=== PATIENT | male | born 1985 | race Two or more races ===

== ENCOUNTER 2016-09-30 18:38 | Emergency (ER) | payer SELFPAY ==
[~2016-09-30] VITALS: Ht 170.2 cm; Wt 100.0 kg
[2016-09-30] MEDS ORDERED: ONDANSETRON 4 MG TAB.RAPDIS SL ONE (19:00)
[2016-09-30] MEDS ORDERED: NAPROXEN 500 MG TABLET PO ONE (19:00)
[2016-09-30] MEDS ORDERED: MORPHINE SULFATE INJ 2 MG/ML DISP.SYRIN IM ONE (19:00)
--- NOTE | 2016-09-30 19:00 | NUR ---
SEEN AND ASSESSED BY MARCII AGACNP AT BEDSIDE
[2016-09-30] MEDS ORDERED: MORPHINE SULFATE INJ 2 MG/ML DISP.SYRIN ONE (19:03)
[2016-09-30] MEDS ORDERED: MORPHINE SULFATE INJ 4 MG/ML DISP.SYRIN ONE (19:03)
[2016-09-30] MEDS ORDERED: ONDANSETRON 4 MG TAB.RAPDIS ONE (19:03)
[2016-09-30] MEDS ORDERED: NAPROXEN 250 MG TABLET ONE (19:04)
--- NOTE | 2016-09-30 19:12 | NUR ---
PAIN MEDS GIVEN ORDERED.
== END 2016-09-30 19:49 | disposition home or self-care (01) ==
LOC: ER 18:41
DX: M10.9 Gout, unspecified (principal); F17.200 Nicotine dependence, unspecified, uncomplicated
CPT/HCPCS: A4606; J2270; Q0162